=== PATIENT | female | born 1985 | race African-American/Black ===

== ENCOUNTER 2017-05-16 09:49 | Day surgery (SDC) | payer MEDICARE, MEDICAID ==
[~2017-05-16 09:49] MED LIST: ACETAMINOPHEN 1,000 MG/100 ML BTL IV ONE; CEFAZOLIN 2 Gram 2 GM/50 ML BAG IVPB ONE; FAMOTIDINE 20MG TABLET PO ONE; MECLIZINE 25 MG TABLET PO ONE; METOCLOPRAMIDE 10 MG TABLET PO ONE
[2017-05-16] MEDS ORDERED: KETOROLAC 30 MG/ML VIAL IVP ONE (09:50)
[2017-05-16] MEDS ORDERED: PROPOFOL 10 MG/ML VIAL IV ONE (09:50)
[2017-05-16] MEDS ORDERED: ONDANSETRON HCL IV 4 MG/2 ML VIAL IVP ONE (09:50)
[2017-05-16] MEDS ORDERED: LIDOCAINE 2% MDV (20MG/ML) 20ML VIAL IV ONE (09:50)
[2017-05-16] MEDS ORDERED: ROCURONIUM BROMIDE 50MG/5ML VIAL IV ONE (09:50)
[2017-05-16] MEDS ORDERED: DEXAMETHASONE 4 MG/ML 1ML VIAL IVP ONE (09:50)
[2017-05-16] MEDS ORDERED: HYDROMORPHONE HCL 2 MG/ML VIAL IV ONE (09:50)
[2017-05-16] MEDS ORDERED: SEVOFLURANE 250 ML INH ONE (09:50)
[2017-05-16] MEDS ORDERED: FENTANYL PF 0.25MG/5ML AMPUL IV ONE (09:50)
[2017-05-16] MEDS ORDERED: MIDAZOLAM HCL 2MG/2ML VIAL IV ONE (09:50)
[2017-05-16 10:06] LABS: HEMATOCRIT 38.8 % (35.0-47.0); HEMOGLOBIN 12.1 gm/dl (11.6-16.0)
[2017-05-16] MEDS ORDERED: ONDANSETRON HCL IV 4 MG/2 ML VIAL IVP PRN (15:42)
[2017-05-16] MEDS ORDERED: HYDROMORPHONE HCL 1 MG/ML CPJ IVP PRN (15:42)
[2017-05-16] MEDS ORDERED: HYDROCODONE/APAP 5/325MG TABLET PO PRN (15:42)
[2017-05-16] MEDS ORDERED: HYDROMORPHONE HCL 2 MG/ML VIAL IVP PRN (15:42)
[2017-05-16] MEDS: RINGERS SOLUTION,LACTATED 1,000 ML IV SCH (17:16)
[2017-05-16] MEDS: HYDROCODONE/APAP 5/325MG TABLET PO PRN (17:42)
[2017-05-16] MEDS: CEFAZOLIN 1 Gram 1 GM/50 ML BAG IVPB SCH (17:46)
[2017-05-16] MEDS: METFORMIN 500 MG TABLET PO SCH (21:20)
[2017-05-16] MEDS: FAMOTIDINE 20MG TABLET PO SCH (21:21)
[2017-05-16] MEDS: ACYCLOVIR 200 MG CAPSULE PO SCH (21:21)
[2017-05-16] MEDS ORDERED: ENOXAPARIN 100 MG/ML SYR SQ SCH (22:00)
[2017-05-16] MEDS ORDERED: SIMVASTATIN 20 MG TABLET PO SCH (22:00)
[2017-05-17] MEDS: RINGERS SOLUTION,LACTATED 1,000 ML IV SCH ×2 (01:50→11:14)
[2017-05-17] MEDS: CEFAZOLIN 1 Gram 1 GM/50 ML BAG IVPB SCH ×2 (01:50→10:13)
[2017-05-17] MEDS: HYDROCODONE/APAP 5/325MG TABLET PO PRN (06:18)
[2017-05-17] MEDS: ACYCLOVIR 200 MG CAPSULE PO SCH (09:12)
[2017-05-17] MEDS: FAMOTIDINE 20MG TABLET PO SCH (09:13)
[2017-05-17] MEDS: METFORMIN 500 MG TABLET PO SCH (09:13)
[2017-05-17] MEDS ORDERED: HYDROXYCHLOROQUINE SULFATE 200 MG TABLET PO SCH (10:00)
[2017-05-17] MEDS ORDERED: RIVAROXABAN 20 MG TABLET PO SCH (10:00)
[2017-05-17] MEDS ORDERED: CITALOPRAM 20 MG TABLET PO SCH (10:00)
[2017-05-17] MEDS ORDERED: LISINOPRIL 10 MG TABLET PO SCH (10:00)
[2017-05-17] MEDS ORDERED: TOPIRAMATE 100MG TABLET PO SCH (10:00)
--- NOTE | 2017-05-17 13:20 | Operative Note ---
DATE OF SURGERY: 05/16/2017 PREOPERATIVE DIAGNOSES: 1. Bilateral symptomatic gigantomastia. 2. Bilateral breast deformity secondary to #1. 3. Bilateral grade 3 breast ptosis. 4. Chronic shoulder grooving secondary to #1. 5. 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 POSTOPERATIVE DIAGNOSES: 1. Bilateral symptomatic gigantomastia. 2. Bilateral breast deformity secondary to #1. 3. Bilateral grade 3 breast ptosis. 4. Chronic shoulder grooving secondary to #1. 5. 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 OPERATION: Bilateral inferior pedicle breast reduction. Surgeon: Morgan Gallegos MD Anesthesia: General. Estimated Blood Loss: 200 mL DRAINS: None. SPECIMENS: 2600 g from the right breast and 2700 g from the left breast. The operative plan was reviewed. She was marked in a sitting position. We discussed the possibility of free nipple grafting should there be any sign of devascularization or venous congestion. FINDINGS: No masses. No pathology. Well-vascularized pedicles. PROCEDURE: The patient was seen preoperatively. The operative plan was reviewed. She was then taken to the operating room. Satisfactory anesthesia. All pressure points well padded, protected. PAS stockings were placed. We prepped and draped in the usual standard manner. We circumscribed her nipple areolar complexes at 4.5 cm and deepithelialized 8 cm base pedicles. The medial resection went perpendicular to the pedicle down to but not through pec fascia. The lateral resection perpendicular pedicle into the axilla leaving a layer of subcu to avoid permanent neurosensory changes. We then made skin flaps which were of uniform thickness. We then took the remaining bulk off the pedicle. Performed the same operation on the opposite side. Checked the pedicles for symmetry as well as the flaps for symmetry as well as hemostasis. Both pedicles bled briskly distally, showed no signs of any vascular compromise or venous congestion. We then closed temporarily, checked for shape, contour, and symmetry. We then placed her supine and closed with interrupted in running 3-0 Monocryl in the horizontal vertical limb. Once this was complete, we sat her up again. Again checked for shape, contour, symmetry and marked the nipple areolar complex position. We then measured the position of the nipple areolar complexes from the sternal notch, nipple midline to nipple and inframammary crease to nipple. Once these 3 numbers were the same, we again placed her supine, excised the defect for the new position of the areolas. As expected, the nipple areolar complexes were directly beneath with good vascularity distally. We then secured them using interrupted and subcuticular 4-0 Monocryl. Sterile non-compressive dressings were applied. She tolerated the procedure well without complication. KRIS
== END 2017-05-17 18:01 | disposition home or self-care (01) ==
LOC: SUR 09:49 → MEDSURG 14:52 → SUR 05-17 18:01
PROVIDERS: ATTEND Plastic Surgery
DX: N62 Hypertrophy of breast (principal); E11.9 Type 2 diabetes mellitus without complications; Z79.84 Long term (current) use of oral hypoglycemic drugs; E78.00 Pure hypercholesterolemia, unspecified; I10 Essential (primary) hypertension; Z79.01 Long term (current) use of anticoagulants; M54.2 Cervicalgia; M54.9 Dorsalgia, unspecified; L98.9 Disorder of the skin and subcutaneous tissue, unspecified; L30.4 Erythema intertrigo
CPT/HCPCS: 36416; 81025; 82948; 85014; 85018; J1650; J1885; J2405; J7120